=== PATIENT | female | born 1980 | race Caucasian/White ===

== ENCOUNTER 2019-07-21 14:41 | Emergency (ER) | payer MEDICAID ==
[~2019-07-21] VITALS: Ht 172.7 cm; Wt 59.2 kg
[~2019-07-21 14:41] MED LIST: CEPHALEXIN500 M1 PO; COMBIVENT INH14.7 GM IH; MACRODANTIN PO; MOTRIN800 MG PO; NO HOME MEDICATIONS; PRENATAL VITAMI1 TA5 PO; PROMETHAZINE12.5 M5 PO; ULTRAM 50MG TAB50 MG PO; ZOFRAN 4MG T4 MG/TAB PO
[2019-07-21 14:48] VITALS: BP 110/79; TEMP 98.7
[2019-07-21] MEDS ORDERED: BACTRIM DS 8001 TAB PO (15:09)
[2019-07-21 15:14] VITALS: PULSE 86
== END 2019-07-21 15:16 | disposition home or self-care (01) ==
LOC: COL.ER 14:41
DX: R21 Rash and other nonspecific skin eruption (principal); F17.210 Nicotine dependence, cigarettes, uncomplicated

== ENCOUNTER 2019-12-18 10:30 | Emergency (ER) | payer MEDICAID ==
[~2019-12-18] VITALS: Ht 172.7 cm; Wt 60.0 kg
[~2019-12-18 10:30] MED LIST changes: +BACTRIM DS 8001 TAB PO
[2019-12-18] MEDS ORDERED: ZOLOFT 50MG50 MG PO (10:57)
[2019-12-18 10:58] VITALS: BP 126/93; TEMP 97.8
[2019-12-18] MEDS ORDERED: FLEXERIL 1010 MG/TAB PO (12:04)
[2019-12-18 12:20] VITALS: PULSE 72
== END 2019-12-18 12:26 | disposition home or self-care (01) ==
LOC: COL.ER 10:30
DX: M54.6 Pain in thoracic spine (principal); F17.210 Nicotine dependence, cigarettes, uncomplicated; X50.0XXA Overexertion from strenuous movement or load, initial encounter
CPT/HCPCS: J1885; J2360

== ENCOUNTER 2022-04-28 20:03 | Emergency (ER) | payer MEDICAID ==
[~2022-04-28] VITALS: Ht 172.7 cm; Wt 52.3 kg
[~2022-04-28 20:03] MED LIST changes: +FLEXERIL 1010 MG/TAB PO; +ZOLOFT 50MG50 MG PO
[2022-04-28 20:11] VITALS: TEMP 101.4
[2022-04-28 20:50] LABS: HEMATOCRIT 33.9 % (37.0-47.0); HEMOGLOBIN 11.9 g/dl (12.5-16.0); MEAN CELL VOLUME 96 fl (80.0-100.0); MEAN CORPUSCULAR HEMOGLOBIN 34 pg (27-31); MEAN CORPUSCULAR HGB CONC 35 g/dl (33.0-37.0); MEAN PLATELET VOLUME 9.9 fl (7.4-10.4); PLATELET COUNT 159 K/mm3 (130-400); RED BLOOD COUNT 3.52 M/mm3 (4.10-5.30); REDCELL DISTRIBUTION WIDTH-CV 13.2 % (11.5-14.5)
[2022-04-28 21:09] LABS: ALBUMIN 3.8 gm/dL (3.5-5.0); BILIRUBIN,TOTAL 0.5 mg/dL (0.2-1.2); CALCIUM 8.4 mg/dL (8.4-10.2); CREATININE, serum 0.77 mg/dL (0.57-1.11); POTASSIUM 3.4 mmol/L (3.5-4.5); TOTAL PROTEIN 6.7 gm/dL (6.2-8.1)
[2022-04-28 21:34] LABS: BAND 16 % (0-10); LYMPHOCYTE 3 % (20.0-51.0); NEUTROPHILS 78 % (42.0-75.2); PLATELET ESTIMATE NORMAL (NORMAL)
[2022-04-28] MEDS ORDERED: ZITHROMAX Z PA250 MG PO (22:25)
[2022-04-28 22:34] VITALS: BP 104/57; PULSE 82
== END 2022-04-28 22:39 | disposition home or self-care (01) ==
LOC: COL.ER 20:03
PROVIDERS: Personal Emergency Response Attendant
DX: U07.1 COVID-19 (principal); D72.825 Bandemia; F17.200 Nicotine dependence, unspecified, uncomplicated
CPT/HCPCS: J0696; J2405; J7030